=== PATIENT | male | born 1985 | race Caucasian/White ===

== ENCOUNTER 2021-10-15 10:02 | Emergency (ER) | payer BC ==
[2021-10-15 11:16] VITALS: BP 135/94; PULSE 84; RESP 18; TEMP 97.6
[2021-10-15] MEDS ORDERED: DIPH,PERTUS(ACELL)TETVAC-LF 0.5 ML VIAL IM ONE (11:55)
[2021-10-15] MEDS ORDERED: ACETAMINOPHEN TAB 500 MG TAB PO STA (11:55)
--- NOTE | 2021-10-15 12:09 | ED ---
General Adult HPI - General Source: family Mode of arrival: ambulatory Limitations: no limitations <Flower Albarran - Last Filed: 10/15/21 13:36> <Danna Francois - Last Filed: 10/16/21 23:38> - General Chief complaint: Wound/Laceration Stated complaint: Lt hand Lac Time Seen by Provider: 10/15/21 11:28 - History of Present Illness Initial comments: This 36-year-old male presents emergency Department with a puncture wound to his left palm. Patient states she was working with her prybar at home when it slipped and caused a puncture wound to his left home. Patient states this happened about an hour ago. Patient denies any loss of sensation or loss of range of motion. Patient states the pain is sharp in nature and is only located where the puncture wound is. Patient denies ever having any trauma to this hand in his past. Patient states pain is 5/10. Patient is unsure when his last tetanus shot was and is agreeable to get one today. Patient denies any chest pain, shortness of breath, abdominal pain, nausea, vomiting, headache, lightheadedness, dizziness, back pain. (Flower Albarran) - Related Data Allergies Allergy/AdvReac Type Severity Reaction Status Date / Time amoxicillin Allergy Rash/Hives Verified 10/15/21 11:16 Penicillins Allergy Rash/Hives Verified 10/15/21 11:16 Review of Systems ROS Other: All systems not noted in ROS Statement are negative. <Flower Albarran - Last Filed: 10/15/21 13:36> ROS Other: All systems not noted in ROS Statement are negative. <Danna Francois - Last Filed: 10/16/21 23:38> ROS Statement: Those systems with pertinent positive or pertinent negative responses have been documented in the HPI. Past Medical History Additional Past Medical History / Comment(s): psoriasis History of Any Multi-Drug Resistant Organisms: None Reported Past Psychological History: No Psychological Hx Reported Smoking Status: Never smoker Past Alcohol Use History: Occasional Past Drug Use History: None Reported <Flower Albarran - Last Filed: 10/15/21 13:36> General Exam Limitations: no limitations General appearance: alert, in no apparent distress Head exam: Present: atraumatic, normocephalic, normal inspection Eye exam: Present: normal appearance, PERRL, EOMI. Absent: scleral icterus, conjunctival injection, periorbital swelling ENT exam: Present: normal exam, mucous membranes moist Neck exam: Present: normal inspection, full ROM. Absent: tenderness, meningismus, lymphadenopathy Respiratory exam: Present: normal lung sounds bilaterally. Absent: respiratory distress, wheezes, rales, rhonchi, stridor Cardiovascular Exam: Present: regular rate, normal rhythm, normal heart sounds. Absent: systolic murmur, diastolic murmur, rubs, gallop, clicks GI/Abdominal exam: Present: soft, normal bowel sounds. Absent: distended, tenderness, guarding, rebound, rigid Extremities exam: Present: full ROM, normal capillary refill, other (Left hand with full sensation in all digits and on dorsal and ventral side of hand. Radial and ulnar pulses palpable.). Absent: normal inspection (Patient with puncture wound 0.5 centimeter in Center of left palm. No bleeding present. Wound appears clean without any debris.), tenderness, pedal edema, joint swelling, calf tenderness Back exam: Present: full ROM. Absent: CVA tenderness (R), CVA tenderness (L) Neurological exam: Present: alert, oriented X3, CN II-XII intact Psychiatric exam: Present: normal affect, normal mood Skin exam: Present: warm, dry, normal color. Absent: intact (Patient with puncture wound to left palm), rash <Flower Albarran - Last Filed: 10/15/21 13:36> Course Vital Signs 10/15/21 11:12 Temperature 97.6 F Pulse Rate 84 Respiratory 18 Rate Blood Pressure 135/94 O2 Sat by Pulse 100 Oximetry Procedures - Laceration Laceration #1 Consent Obtained: verbal consent Indication: other (Puncture wound) Description: linear Pre-repair: irrigated extensively Patient Tolerated Procedure: well, no complications <Flower Albarran - Last Filed: 10/15/21 13:36> - Laceration Laceration #1 Additional Comments: Bacitracin ointment and Steri-Strips applied. Hemostasis obtained (Flower Albarran) Medical Decision Making <Flower Albarran - Last Filed: 10/15/21 13:36> <Danna Francois - Last Filed: 04/04/22 23:38> - Medical Decision Making This 36-year-old male presents emergency Department with a puncture wound to left palm. Left hand x-ray impression: There may be some soft tissue swelling of the contaminants. Correlate as to the site of patient's puncture wound. No retained radiopaque foreign body or acute osseous abdomen at he seen. Patient did soak left hand in normal saline and iodine solution. Bacitracin ointment applied along with 1 Steri-Strip which patient was instructed to keep in place until it falls off in the next 1-2 days. Patient did receive tetanus shot here in the emergency department. Strict return precautions were discussed. Patient instructed to follow up with primary care provider next 1-2 days. Patient related pain. Patient sent home in stable condition. Case discussed in detail with the attending, . (Flower Albarran) I was available for consultation in the emergency department. The history and physical exam were done by the midlevel provider. I was consulted for this patients care. I reviewed the case with the midlevel provider and based on their presentation of the patient, I agree with the assessment, medical decision making and plan of care as documented. Chart was dictated using [employer] dictation software. Attempts were made to correct any dictation errors however some typographical errors may persist. (Danna Francois) Disposition Is patient prescribed a controlled substance at d/c from ED?: No When asked, does pt state using other controlled substances?: No Time of Disposition: 13:15 <Flower Albarran - Last Filed: 10/15/21 13:36> <Danna Francois - Last Filed: 10/16/21 23:38> Clinical Impression: Puncture wound, hand Disposition: HOME SELF-CARE Condition: Stable Instructions (If sedation given, give patient instructions): Puncture Wound (ED) Additional Instructions: Please return to the emergency department with any new, worsening or concerning symptoms. Follow-up with primary care provider in next 1-2 days. Referrals: None,Stated [Primary Care Provider] - 1-2 days Diomedes Guerra [STAFF PHYSICIAN] - 1-2 days
--- NOTE | 2021-10-15 12:35 | XR ---
EXAMINATION TYPE: XR hand complete LT DATE OF EXAM: 10/15/2021 COMPARISON: NONE HISTORY: 36-year-old male pain, puncture wound TECHNIQUE: 3 views FINDINGS: There may be some soft tissue swelling at the thenar eminence. Correlate as to the site of puncture w ound. No retained radiopaque foreign body seen. No acute fracture, subluxation, dislocation. There is early degenerative spurring at the DRUJ. IMPRESSION: There maybe some soft tissue swelling at the thenar eminence. Correlate as to the site of patient's p uncture wound. No retained radiopaque foreign body or acute osseous abnormality seen.
[2021-10-15] MEDS ORDERED: BACITRACIN ZINC 500 UNIT/GM OINT 28.4 GM TUBE TOPICAL ONE (13:08)
== END 2021-10-15 13:49 | disposition home or self-care (01) ==
LOC: EC 10:02
DX: S61.432A Puncture wound without foreign body of left hand, initial encounter (principal); W26.8XXA Contact with other sharp object(s), not elsewhere classified, initial encounter; Y92.009 Unspecified place in unspecified non-institutional (private) residence as the place of occurrence of the external cause
CPT/HCPCS: 90471; 90715; 99283

== ENCOUNTER → 2021-11-13 | Outpatient (CLI) | payer BC | END | disposition home or self-care (01) | LOC: LABWHC1 15:02 | PROVIDERS: ATTEND Dermatology | DX: L40.0 Psoriasis vulgaris (principal); L40.59 Other psoriatic arthropathy | CPT/HCPCS: 36415; 86480 ==

== ENCOUNTER → 2022-11-01 | Outpatient (CLI) | payer BC | END | disposition home or self-care (01) | LOC: LABWHC1 15:53 | PROVIDERS: ATTEND Dermatology | DX: L40.0 Psoriasis vulgaris (principal); L40.59 Other psoriatic arthropathy | CPT/HCPCS: 36415; 86480 ==

== ENCOUNTER 2023-03-08 11:56 | Day surgery (SDC) | payer BC ==
[2023-03-08] MEDS ORDERED: LACTATED RINGERS 1,000 ML IV SCH (14:15)
[2023-03-08 14:24] VITALS: TEMP 98
[2023-03-08] MEDS ORDERED: LIDOCAINE 2% INJ 20 MG/ML (2 ML VIAL) ONE (15:41)
[2023-03-08] MEDS ORDERED: fentaNYL (PF) 50 MCG/ML 2 ML AMP ONE (15:41)
[2023-03-08] MEDS ORDERED: PROPOFOL 10 MG/ML 20 ML VIAL IV ONE (15:41)
[2023-03-08] MEDS ORDERED: MIDAZOLAM 2 MG/2 ML VIAL ONE (15:41)
--- NOTE | 2023-03-08 16:01 | P.PCN ---
Date of Procedure: 03/08/23 Procedure(s) Performed: BRIEF HISTORY: Patient is a 38-year-old, pleasant, white male scheduled for an upper endoscopy as a part of evaluation of long-standing history of GERD. He was on Prilosec in the past and recently was changed to Nexium 20 mg daily and symptoms improved for a month. However for the last few weeks has was in symptoms and hence he stopped taking the medication and scheduled for an upper endoscopy to evaluate further. PROCEDURE PERFORMED: Esophagogastroduodenoscopy with biopsy. PREOPERATIVE DIAGNOSIS: Long-standing history of GERD. IV sedation per anesthesia. PROCEDURE: After informed consent was obtained, the patient was brought into the endoscopy unit. IV sedation was administered by Anesthesia under continuous monitoring. Initially the Olympus GIF-140 video endoscope was inserted into the mouth. Esophagus intubated without any difficulty. It was gradually advanced into the stomach and duodenum and carefully examined. The bulb and the second part of the duodenum appeared normal. The scope at this time was withdrawn to the stomach, adequately insufflated with air, and upon careful examination, mucosa of the antrum, patchy areas of erythema in the prepyloric area which was biopsied. Mucosa of the body, cardia and the fundus appeared normal. The scope was then withdrawn into the esophagus. The GE junction was located at 41 cm from the incisors. The esophagus appeared normal. The mucosal folds in the distal esophagus appeared slightly thickened and hence biopsies were done from this area. There were no erosions or ulcerations seen and the patient tolerated the procedure well. IMPRESSION: 1. Thickened folds in the distal esophagus status post biopsies to rule out reflux/eosinophilic esophagitis 2. Mild antral gastritis. RECOMMENDATIONS: The findings of this examination were discussed with the patient as well as his family. He was advised to follow with the biopsy results. Trial of Protonix 40 mg daily and follow antireflux measures..
[2023-03-08 16:25] VITALS: BP 113/76; PULSE 74; RESP 17
== END 2023-03-08 16:38 | disposition home or self-care (01) ==
LOC: ORWHC2ENDO 11:56
PROVIDERS: ATTEND Internal Medicine Gastroenterology
DX: K21.00 Gastro-esophageal reflux disease with esophagitis, without bleeding (principal); K29.50 Unspecified chronic gastritis without bleeding; Z88.0 Allergy status to penicillin; Z87.891 Personal history of nicotine dependence; Z79.899 Other long term (current) drug therapy
CPT/HCPCS: 88305; 43239; J2250; J3010; J2704; J2001

== ENCOUNTER → 2023-11-05 | Outpatient (CLI) | payer BC | END | disposition home or self-care (01) | LOC: LABWHC1 15:02 | PROVIDERS: ATTEND Nurse Practitioner Family | DX: L40.0 Psoriasis vulgaris (principal); L40.59 Other psoriatic arthropathy | CPT/HCPCS: 36415; 86480 ==

== ENCOUNTER → 2024-11-24 | Outpatient (CLI) | payer BC ==
[2024-11-24 18:21] LABS: Albumin 4.5 g/dL (3.8-4.9); Albumin/Globulin Ratio 1.8 Ratio (1.60-3.17); Bilirubin, Conjugated 0.29 mg/dL (0.20-0.40); Bilirubin,Unconjugated 0.41 mg/dL (0.20-1.00); Globulin 2.5 g/dL (1.6-3.3); Total Bilirubin 0.7 mg/dL (0.3-1.2)
== END | disposition home or self-care (01) ==
LOC: LABWHC1 14:56
PROVIDERS: ATTEND Dermatology
DX: Z51.81 Encounter for therapeutic drug level monitoring (principal); L40.0 Psoriasis vulgaris; Z79.899 Other long term (current) drug therapy
CPT/HCPCS: 36415; 80076; 86480